=== PATIENT | female | born 1995 | race Caucasian/White ===

== ENCOUNTER 2022-12-22 10:11 | Emergency (ER) | payer OTHER ==
[~2022-12-22] VITALS: Ht 154.9 cm; Wt 65.8 kg
[2022-12-22 10:12] VITALS: BP_SYST 141
[2022-12-22 12:45] VITALS: BP_SYST 141
== END 2022-12-22 12:42 | disposition left against medical advice (07) ==
LOC: SED 10:11
DX: R51.9 Headache, unspecified (principal); R11.2 Nausea with vomiting, unspecified; F41.9 Anxiety disorder, unspecified; Z53.21 Procedure and treatment not carried out due to patient leaving prior to being seen by health care provider
CPT/HCPCS: 99281